=== PATIENT | female | born 1980 | race Caucasian/White ===

== ENCOUNTER 2017-08-22 21:11 | Inpatient (IN) | payer OTHER, MEDICAID ==
[~2017-08-22] VITALS: Ht 165.1 cm; Wt 113.4 kg
[~2017-08-22 21:11] MED LIST: ACYCLOVIR 200200 MG PO; AMOXICILLIN 50500 MG PO; BACTROBAN22 GM TP; BIRTH CONTROL; BUTRANS1 EAC1; CLONAZEPAM; COZAAR 25 MG TA25 M1 PO; FIORINAL 50-321 EACH PO; FLEXERIL PO; HYDROCODON-ACE1 EA12 PO; HYDROCODON-ACE1 EAC8 PO; HYDROCODONE-AP1 EAC6 PO; IBUPROFEN 800800 M1 PO; IBUPROFEN 800800 MG PO; LEVAQUIN 500 M500 M2 PO; LOESTRIN FE 1-1 EACH; NORCO 5-325 TA1 EACH PO; NUVIGIL; OSELB75 PO; OXYCODONE HCL30 MG PO; OXYCONTIN10 M1 PO; OXYCONTIN15 MG PO; PERCOCET 5-3251 EACH PO; POLYSPORIN OINT15 GM TP; PREDNISONE 10 M10 M1 PO; PRILOSEC40 MG PO; PROAIR HFA8.5 GM INH; ULTRACET TABLE1 EACH PO; ULTRAM 50MG TAB50 MG PO; VALIUM5 MG PO; ZANAFLEX4 M1; ZANAFLEX4 M1 PO; ZITHROMAX250 MG NG; ZOFRAN ODT4 MG PO; ZOFRAN4 MG PO; ZOLOFT 50 MG TA50 M1 PO; [UNRECOGNIZED DRUG - OTHER]; [UNRECOGNIZED DRUG - OTHER]
[2017-08-22 21:42] LABS: URINE BILIRUBIN NEGATIVE (Negative); URINE BLOOD TRACE (Negative); URINE CLARITY CLEAR; URINE COLOR YELLOW; URINE GLUCOSE-RANDOM NEGATIVE (Negative); URINE KETONES NEGATIVE (Negative); URINE LEUKOCYTES-REFLEX NEGATIVE (Negative); URINE NITRITE-REFLEX NEGATIVE (Negative); URINE PROTEIN NEGATIVE (Negative); URINE SPECIFIC GRAVITY 1.015 (1.005-1.030); URINE UROBILINOGEN 0.2 E.U./dl (0.2-1.0)
[2017-08-22 21:50] LABS: ABSOLUTE BASOPHILS 0.1 thou/uL (0.0-0.2); ABSOLUTE EOSINOPHILS 0.4 thou/uL (0.0-0.7); ABSOLUTE LYMPHOCYTES 4.3 thou/uL (0.8-5.3); ABSOLUTE NEUTROPHILS 6.8 thou/uL (1.6-8.1); BASOPHILS 0.7 %; EOSINOPHILS 3.2 %; HEMATOCRIT 43.7 % (37.0-47.0); HEMOGLOBIN 14.9 gm/dL (12.0-15.0); LYMPHOCYTES 34.3 %; MCH 30.4 pg (26.0-34.0); MCV 89.4 fL (80.0-100.0); MONOCYTES 8.2 %; MPV 9.5 fl. (7.2-11.1); NUCLEATED RBCS 0 /100WBC; PLATELET COUNT* 275 thou/uL (150-400); POLYS 53.6 %; RBC 4.89 mil/uL (4.20-5.00); RDW-CV 12.4 % (10.5-14.5); WBC 12.6 thou/uL (4.0-11.0)
[2017-08-22 21:51] LABS: AMP/METHAMP Negative (Negative); BARBITURATES Negative (Negative); BENZODIAZEPINES Negative (Negative); COCAINE Negative (Negative); METHADONE Negative (Negative); OPIATES Negative (Negative); PCP Negative (Negative); THC Negative (Negative)
[2017-08-22 22:00] LABS: ANION GAP 10 mmol/L (7-16); BUN 9 mg/dL (7-18); CALCIUM 9.3 mg/dL (8.5-10.1); CHLORIDE 103 mmol/L (98-107); CO2 23 mmol/L (21-32); GLUCOSE 142 mg/dL (70-99); POTASSIUM 4.4 mmol/L (3.5-5.1); SODIUM 136 mmol/L (136-145)
[2017-08-22 22:07] LABS: INFLUENZA A ANTIGEN None Detected (None Detect); INFLUENZA B ANTIGEN None Detected (None Detect)
[2017-08-22 22:10] LABS: ALBUMIN 3.6 g/dL (3.4-5.0); ALKALINE PHOSPHATASE 113 U/L (46-116); NT-PRO BRAIN NAT PEPTIDE 369 pg/mL (<300); SGOT 18 U/L (15-37); SGPT 40 U/L (30-65); TOTAL BILIRUBIN 0.1 mg/dL (<0.1-1.0); TROPONIN-I LEVEL <0.06 ng/mL (<0.06)
[2017-08-23] VITALS (7 sets, daily range): BP systolic 114–137; BP diastolic 69–81
[2017-08-23 00:29] LABS: CSF GLUCOSE 79 mg/dl (40-70)
[2017-08-23 00:55] LABS: VOLUME 12 ml
[2017-08-23 01:18] LABS: CSF WBC 3 /mm3 (0-10)
[2017-08-23 01:19] LABS: CSF RBC 273 /mm3
[2017-08-23 01:28] LABS: CSF LYMPHOCYTES 61 % (40-80); CSF MONONUCLEARS 13 % (15-45); CSF POLYS 16 % (0-6)
[2017-08-23 01:52] LABS: CSF COLOR COLORLESS
[2017-08-23 01:54] LABS: CSF CLARITY CLEAR
[2017-08-23 03:04] LABS: ABSOLUTE EOSINOPHILS 0.1 thou/uL (0.0-0.7); ABSOLUTE LYMPHOCYTES 1.7 thou/uL (0.8-5.3); ABSOLUTE MONOCYTES 0.4 thou/uL (0.0-1.2); ABSOLUTE NEUTROPHILS 10.3 thou/uL (1.6-8.1); BASOPHILS 0.3 %; EOSINOPHILS 0.6 %; HEMATOCRIT 41.8 % (37.0-47.0); HEMOGLOBIN 14.2 gm/dL (12.0-15.0); LYMPHOCYTES 13.3 %; MCH 30.4 pg (26.0-34.0); MCHC 33.9 g/dL (28.0-37.0); MCV 89.5 fL (80.0-100.0); MONOCYTES 3.4 %; MPV 10.2 fl. (7.2-11.1); NUCLEATED RBCS 0 /100WBC; PLATELET COUNT* 253 thou/uL (150-400); POLYS 82.4 %; RBC 4.67 mil/uL (4.20-5.00); RDW-CV 12.5 % (10.5-14.5); WBC 12.5 thou/uL (4.0-11.0)
[2017-08-23 03:06] LABS: ALBUMIN 3.4 g/dL (3.4-5.0); CALCIUM 9.1 mg/dL (8.5-10.1); TOTAL BILIRUBIN 0.1 mg/dL (<0.1-1.0); TOTAL PROTEIN 7.2 g/dL (6.4-8.2)
[2017-08-23 03:08] LABS: POTASSIUM 6.1 mmol/L (3.5-5.1)
[2017-08-23] MEDS ORDERED: ZANAFLEX4 MG PO (11:19)
[2017-08-23] MEDS ORDERED: RESTORIL30 MG PO (11:20)
[2017-08-23] MEDS ORDERED: TRAZODONE HCL50 MG PO (11:20)
[2017-08-23] MEDS ORDERED: VISTARIL 25 MG25 M1 PO (11:21)
[2017-08-23] MEDS ORDERED: VITAMIN D5000 UNI1 PO (11:23)
[2017-08-23] MEDS ORDERED: COZAAR 50 MG TA50 M2 PO (11:24)
[2017-08-23] MEDS ORDERED: HYDROCHLOROTHIA25 M2 PO (11:25)
[2017-08-23] MEDS ORDERED: OMEPRAZOLE 20 M20 M1 PO (11:25)
[2017-08-23] MEDS ORDERED: NORVASC2.5 MG PO (11:26)
[2017-08-23] MEDS ORDERED: DULERA 100 MCG/13 GM INH (11:27)
[2017-08-23] MEDS ORDERED: NEURONTIN600 MG PO (11:27)
[2017-08-23] MEDS ORDERED: ARMODAFINIL200 MG PO (11:28)
[2017-08-23] MEDS ORDERED: B12INJ IM (11:29)
[2017-08-23] MEDS ORDERED: HYDROCODON-ACE1 EAC5 PO (11:30)
[2017-08-23] MEDS ORDERED: MORPHINE SULFAT15 M3 PO (11:30)
[2017-08-23] MEDS ORDERED: LIDOCAINE1 EACH TRANSDERM (11:31)
--- NOTE | 2017-08-23 15:19 | 2DMMODE ---
[place] [address] 2 D/M-MODE ECHOCARDIOGRAM Name: JAYME KATZ Room: [address] IN [facility]#: [id number] Admission: 08/22/17 Attend Phys: Morgan Rodriguez Discharge: Date of : 76 Date of Service: 08/23/17 1519 Report #: [id number] THIS REPORT FOR: //name// APPROVED REPORT Study performed: 08/23/2017 13:38:21 EXAM: Comprehensive 2D, Doppler, and color-flow Echocardiogram Patient Location: In-Patient Room #: 002 Status: routine BSA: 2.17 HR: 82 bpm BP: 130/69 mmHg Rhythm: NSR Other Information Study Quality: Good Indications AMS 2D Dimensions LVEF(%): 73.78 (>50%) IVSd: 10.45 (7-11mm) LVOT Diam: 18.54 (18-24mm) LVDd: 42.77 mm PWd: 9.33 (7-11mm) Ascending Ao: 23.99 (22-36mm) LVDs: 24.63 (25-40mm) Aortic Root: 28.84 mm Hughes's LVEF: 73.78 % Aortic Valve AoV Peak Alfonso.: 1.78 m/s AO Peak Gr.: 12.74 mmHg LVOT Max P.66 mmHg AO Mean Gr.: 6.83 mmHg LVOT Mean P.15 mmHg LVOT Max V: 1.29 m/s AO V2 VTI: 27.84 cm LVOT Mean V: 0.81 m/s JOE (VTI): 2.37 cm2 LVOT V1 VTI: 24.39 cm Mitral Valve E/A Ratio: 1.36 MV Decel. Time: 240.35 ms MV E Max Alfonso.: 0.76 m/s MV PHT: 69.70 ms MVA (PHT): 3.16 [place]2 [place] [address] 2 D/M-MODE ECHOCARDIOGRAM Name: GIANNAJAYME D Room: [address]R.#: [id number] Admission: 08/22/17 Attend Phys: Morgan Rodriguez Discharge: Date of : 76 Date of Service: 08/23/17 1519 Report #: [id number] TDI Medial E' Alfonso.: 0.07 m/s Lateral E' Alfonso.: 0.11 m/s Pulmonary Valve PV Peak Alfonso.: 1.09 m/s PV Peak Gr.: 4.79 mmHg Left Ventricle The left ventricle is normal size. There is normal LV segmental wall motion. There is normal left ventricular wall thickness. Left ventricular systolic function is normal. The left ventricular ejection fraction is within the normal range. LVEF is 60-65%. This study is not technically sufficient to allow evaluation of the LV diastolic function. Right Ventricle The right ventricle is normal size. The right ventricular systolic function is normal. Atria The left atrium size is normal. The right atrium size is normal. Aortic Valve Mild aortic valve sclerosis. No aortic regurgitation is present. There is no aortic valvular stenosis. Mitral Valve The mitral valve is normal in structure. There is no mitral valve regurgitation noted. No evidence of mitral valve stenosis. Tricuspid Valve The tricuspid valve is normal in structure. There is no tricuspid valve regurgitation noted. Pulmonic Valve The pulmonary valve is normal in structure. There is no pulmonic valvular regurgitation. Great Vessels The aortic root is normal in size. IVC is normal in size and collapses with >50% inspiration Pericardium There [place] [address] 2 D/M-MODE ECHOCARDIOGRAM Name: JAYME KATZ Room: [address] IN [facility]#: [id number] Admission: 08/22/17 Attend Phys: Morgan Rodriguez Discharge: Date of : 76 Date of Service: 08/23/17 1519 Report #: [id number] <Conclusion> The left ventricle is normal size. There is normal left ventricular wall thickness. Left ventricular systolic function is normal. The left ventricular ejection fraction is within the normal range. LVEF is 60-65%. The right ventricle is normal size. The left atrium size is normal. Mild aortic valve sclerosis. No aortic regurgitation is present. There is no aortic valvular stenosis. The mitral valve is normal in structure. The tricuspid valve is normal in structure. IVC is normal in size and collapses with >50% inspiration There is no pericardial effusion. There is normal LV segmental wall motion. <ELECTRONICALLY SIGNED> By: Forest Solorzano MD, FACC 08/23/17 1519 1519 1519 Forest Solorzano MD, FACC /INF
--- NOTE | 2017-08-23 17:36 | EKG ---
[place] [address] ELECTROCARDIOGRAM REPORT Name: JAYME KATZ Room: [address] ADM IN .R.#: [id number] Admission: 08/22/17 Attend Phys: Gilda Wyatt Discharge: Date of : 76 Report #: [id number] THIS REPORT FOR: //name// [facility] ED Test Date: 2017-08-22 Test Time: 21:19:50 Pat Name: JAYME MENDOZAKHARDT Department: Room: [facility] Gender: F Retail Sales Professional: SADIQ Cedeno : 1980 Requested By: Kia Rojas Order Number: [id number] MD: Jesse Cardoso Measurements Intervals [place] Rate: 59 P: 27 CA: 113 QRS: 70 QRSD: 92 T: 27 QT: 443 QTc: 439 Interpretive Statements Sinus rhythm Borderline short CA interval Compared to ECG 10/06/2013 21:00:08 No significant changes Electronically Signed On 08-23-2017 17:36:53 SURGICAL SERVICES ASST by Jesse Cardoso [email or web address] <ELECTRONICALLY SIGNED> By: Jesse Cardoso MD, FACC 08/23/17 1736 Jesse Cardoso MD, [facility] /EPI
[2017-08-24] VITALS: BP 149/88
[2017-08-24 04:00] VITALS: BP 136/79
[2017-08-24 08:00] VITALS: BP 148/95
[2017-08-24 12:21] VITALS: BP 149/95
[2017-08-24 16:00] VITALS: BP 145/69
[2017-08-24 20:00] VITALS: BP 141/77
[2017-08-25 00:08] VITALS: BP 147/88
[2017-08-25 04:14] VITALS: BP 127/75
[2017-08-25 04:29] LABS: HEMATOCRIT 36.7 % (37.0-47.0); HEMOGLOBIN 12.5 gm/dL (12.0-15.0); MCH 30.8 pg (26.0-34.0); MCHC 34.1 g/dL (28.0-37.0); MCV 90.5 fL (80.0-100.0); MPV 10.2 fl. (7.2-11.1); RBC 4.05 mil/uL (4.20-5.00); RDW-CV 12.7 % (10.5-14.5); WBC 9.1 thou/uL (4.0-11.0)
[2017-08-25 04:44] LABS: CALCIUM 8.6 mg/dL (8.5-10.1); CREATININE 0.9 mg/dL (0.6-1.3); MAGNESIUM 2.1 mg/dL (1.8-2.4); POTASSIUM 3.7 mmol/L (3.5-5.1)
[2017-08-25 08:00] VITALS: BP 154/90
[2017-08-25 15:10] VITALS: BP 150/92
--- NOTE | 2017-08-25 20:10 | CON ---
[facility] [address] [place] [address] CONSULTATION Name: JAYME KATZ Room: [address] IN .R.#: [id number] Admission: 08/22/17 Attend Phys: Gilda Wyatt Discharge: Date of : 76 Report #: [id number] THIS REPORT FOR: //name// CC: Mack Rodriguez DATE OF SERVICE: 08/23/2017 HISTORY OF PRESENT ILLNESS: This is a 36-year-old female patient who was evaluated by me for a pretty unusual history. The history I get is different than what has been recorded in this patient's record. It would appear that she had a history of unresponsiveness. She had this kind of problem before, but not that bad. indicated that when he came home yesterday, she said she cannot see anything. This has happened to her in the past, but it has not been that severe. Since then, she cannot see anything and she is having obtundation, she will not talk. They think she may have had a seizure. The history is poorly defined, but apparently, she had multiple seizures, but she has not seen a neurologist because they cannot find anybody who takes her insurance. REVIEW OF SYSTEMS: Positive for fibromyalgia. Some question of lupus has been raised. She had ovarian cyst in the past. She is on control pills, but continued to have some bleeding intermittently. Her blood pressure fluctuates, but she has a history of hypertension. This was her 14-point review of system which I can get. PAST MEDICAL HISTORY: Positive for seizure, but history is poorly defined. FAMILY HISTORY: Negative for early age stroke. SOCIAL HISTORY: She has a history of nicotine use, but denies any regular alcohol intake. PHYSICAL EXAMINATION: NEUROLOGIC: Her examination is very difficult. She does not keep her eyes open and I cannot tell whether she can see anything or not. She indicates she cannot see anything and she cannot speak and she does not have any speech at all. When I ask to squeeze my fingers, she gives a very poor effort and does it very poorly. Her reflexes are difficult to elicit. RESPIRATORY: Her breathing is nonlabored. VITAL SIGNS: Blood pressure is 130/69, respirations 18, pulse is 83 and temperature is 97.8. LABORATORY DATA: Lab indicates slightly increased white count at 12.5. She has one high reading of potassium and that may be lab error. Sed rate is 25. She did have an MRI of the brain. I reviewed the films with the radiologist. what that is; it is in the location where PRES can occur, [place] [address] CONSULTATION Name: JAYME KATZ Room: [address] IN ..#: [id number] Admission: 08/22/17 Attend Phys: Gilda Wyatt Discharge: Date of : 76 Report #: [id number] very typical for that. That would not explain all her symptoms. IMPRESSION: Clinically, the patient's symptoms do not make any anatomical sense, but her MRI is definitely abnormal. Abnormality on the MRI is not severe enough to explain her symptom. That makes the evaluation of this patient extremely difficult. I discussed that aspect with the patient and the family and I also discussed with them the limitation of our hospital, including the fact that no windows support engineer comes here on a regular basis and no hand assembler comes here at all. I discussed their options in that regard and realized that it will be difficult to transfer the patient to some other place because they have been trying to get into some neurologist for a long time and have not been able to do that either. I told them that we will do some simpler testing here, but did discuss with our limitation and their options. RECOMMENDATIONS: 1. I discussed with them that we will get an MRI of the brain with contrast to see if we can see any pathology in that regard. 2. It is unlikely that she has any inflammatory MEDICAL DIRECTOR/HEAD TEAM PHYSICIAN pathology because her sed rate is only minimally elevated and spinal tap is basically normal and in spite of RBC, even her protein is normal. 3. I will get an MRV. 4. I will get an echocardiogram. 5. She is complaining of lot of cervical spine symptoms and we will go ahead and do the MRI of the C-spine. 6. We will put an Ophthalmology consult to see if somebody can see this patient. We will reevaluate this patient after the above is accomplished. More than 50 minutes of time was spent taking care of this patient today and majority of that time was spent counseling the patient's and patient as well as coordinating her care as described above. Thank you very much for this referral. <ELECTRONICALLY SIGNED> By: Vitaly Seo MD 08/25/172009 1501 [id number] Seo MD /nt
--- NOTE | 2017-08-25 20:10 | EEG ---
[address] [address] EEG STUDY REPORT Name: JAYME KATZ Room: [address] IN .#: [id number] Admission: 08/22/17 Attend Phys: Gilda Wyatt Discharge: Date of : 76 Report #: [id number] THIS REPORT FOR: //name// CC: Mack Rodriguez DATE OF SERVICE: 08/24/2017 INDICATION FOR PROCEDURE: This patient is being evaluated for altered mental status. INTERPRETATION: EEG was done by placing the electrodes by standard 10-20 system of electrode placement. Both referential and sequential montages were used for recording. Background activity in this patient's goes up to about 8-9 Hz and 30-40 microvolts. The patient is asleep during part of this EEG and that is associated with bilateral slowing and vertex sharp waves. The sharp and rhythmic activity, which was noticed the last time is less prominent. IMPRESSION: This patient's electroencephalogram demonstrates some accessible slowing, which is probably sleep related but is improved since last time. Thank you very much for this referral. <ELECTRONICALLY SIGNED> By: Vitaly Seo MD 08/25/172009 1754 0013Phugh Seo MD /nt
--- NOTE | 2017-08-25 20:10 | EEG ---
[address] [address] EEG STUDY REPORT Name: JAYME KATZ Room: [address] IN .R.#: [id number] Admission: 08/22/17 Attend Phys: Gilda Wyatt Discharge: Date of : 76 Report #: [id number] THIS REPORT FOR: //name// CC: Mack Rodriguez DATE OF SERVICE: 08/23/2017 This patient's EEG was done by placing the electrodes by standard 10-20 system of electrode placement. Both referential and sequential montages were used for recording. Background activity in this patient's EEG appeared to be up to about 7 Hz. Most of the EEG was obtained when the patient was asleep. That is associated with bilateral slowing and vertex sharp waves, but some slowing appeared to be present more in the frontal area than in the central area as expected with sleep. Some sharper activity also is present, but it is difficult to separate from sleep. Photic stimulation is unremarkable. IMPRESSION: This is a pretty unusual electroencephalogram. Most of it is because of the sleep, but I cannot rule any seizure activity in that regard. We will give a trial with a seizure medication in this patient to see if she improves any. Thank you very much for this referral. <ELECTRONICALLY SIGNED> By: Vitaly Seo MD 08/25/172009 1659 1904PMD tanika Knowles
[2017-08-26 00:51] VITALS: BP 147/95
[2017-08-26 04:50] VITALS: BP 143/92
[2017-08-26 08:40] VITALS: BP 144/97
[2017-08-26 16:00] VITALS: BP 152/96
[2017-08-26 18:09] LABS: ADENOVIRUS Negative (Negative); INFLUENZA A Negative (Negative); INFLUENZA B Negative (Negative); METAPNEUMOVIRUS Negative (Negative); PARAINFLUENZA 1 Negative (Negative); PARAINFLUENZA 2 Negative (Negative); PARAINFLUENZA 3 Negative (Negative); RHINOVIRUS Negative (Negative); RSV A Negative (Negative); RSV B Negative (Negative)
[2017-08-26 20:00] VITALS: BP 129/80
[2017-08-26 23:10] VITALS: BP 133/91
[2017-08-27 04:10] VITALS: BP 144/89
[2017-08-27 08:00] VITALS: BP 140/78
[2017-08-27] MEDS ORDERED: KEPPRA 500 MG500 M1 PO (16:01)
[2017-08-27] MEDS ORDERED: ASMANEX HFA13 G1 INH (16:05)
[2017-08-27] MEDS ORDERED: JUNEL FE 1-201 EACH PO (16:07)
[2017-08-27] MEDS ORDERED: TYLENOL325 MG PO (16:12)
[2017-08-27 16:15] VITALS: BP 140/78
--- NOTE | 2017-09-06 19:06 | EEG ---
[address] [address] EEG STUDY REPORT Name: JAYME KATZ Room: [address]R#: [id number] Admission: 08/22/17 Attend Phys: Gilda Wyatt Discharge: 08/27/17 Date of : 76 Report #: [id number] THIS REPORT FOR: //name// CC: Mack Rodriguez DATE OF SERVICE: 08/27/2017 This patient's EEG is being done for comparison. EEG was done by placing the electrodes by standard 10/20 system of electrode placement. Both referential and sequential montages were used for recording. Background activity in this patient's EEG is about 9 Hz and 30 microvolts. Large portion of this patient's EEG was obtained when the patient was asleep and that is associated with bilaterally symmetrical sleep spindle and vertex sharp wave. Photic stimulation was unremarkable. Throughout the records, no active epileptiform activity was noticed. IMPRESSION: This patient's EEG is unremarkable. No active epileptiform activity was noticed during this record. Thank you very much for this referral. <ELECTRONICALLY SIGNED> By: Vitaly Seo MD 09/06/17 1906 0712 [id number] Seo MD /nt
[2018-03-10] MEDS ORDERED: PERCOCET 10-321 EACH PO (23:30)
[2018-03-10] MEDS ORDERED: NUVIGIL200 MG PO (23:30)
[2018-03-10] MEDS ORDERED: MS CONTIN15 MG PO (23:30)
[2018-03-10] MEDS ORDERED: LOESTRIN1 EAC1 PO (23:31)
[2018-03-10] MEDS ORDERED: B12INJ IM (23:32)
[2018-03-10] MEDS ORDERED: RESTORIL30 MG PO (23:32)
[2018-03-10] MEDS ORDERED: LIDODERM1 EACH TRANSDERM (23:33)
[2018-03-11] MEDS ORDERED: ZANAFLEX4 MG PO (02:01)
== END 2017-08-27 17:15 | disposition home or self-care (01) | DRG 91 ==
LOC: M.ERS 21:11 → M.TBA-ER 22:36 → M.ICU 22:36 → M.3W 22:36 → M.ICU 08-23 02:03 → M.3W 08-23 16:30
PROVIDERS: Emergency Medicine; Internal Medicine; ADMIT Internal Medicine
PROC: 009U3ZX Drainage of Spinal Canal, Percutaneous Approach, Diagnostic (ICD-10-PCS; principal; 2017-08-22)
PROC: B24BZZ4 Ultrasonography of Heart with Aorta, Transesophageal (ICD-10-PCS; 2017-08-23)
PROC: 4A00X4Z Measurement of Central Nervous Electrical Activity, External Approach (ICD-10-PCS; 2017-08-23)
DX: G92 Toxic encephalopathy (principal); I67.83 Posterior reversible encephalopathy syndrome; R65.10 Systemic inflammatory response syndrome (SIRS) of non-infectious origin without acute organ dysfunction; F11.20 Opioid dependence, uncomplicated; I10 Essential (primary) hypertension; G40.909 Epilepsy, unspecified, not intractable, without status epilepticus; J45.909 Unspecified asthma, uncomplicated; M79.7 Fibromyalgia; F17.210 Nicotine dependence, cigarettes, uncomplicated; Z88.2 Allergy status to sulfonamides; Z88.8 Allergy status to other drugs, medicaments and biological substances